=== PATIENT | male | born 1950 | race Caucasian/White ===

== ENCOUNTER 2020-02-07 13:53 | Inpatient (IN) | payer BC, OTHER ==
[~2020-02-07] VITALS: Ht 180.3 cm; Wt 90.6 kg
[2020-02-07] MEDS ORDERED: ONDANSETRON HCL 4 MG/2 ML VIAL IV ONE (15:15)
[2020-02-07] MEDS ORDERED: MORPHINE SULF INJ 2 MG/ML SYRINGE 1ML IV ONE (15:15)
[2020-02-07 15:18] LABS: Basophils # (auto) 0.1 10 ^3/uL (0-0.2); Basophils % (auto) 0.7 % (0.0-2.0); Eosinophils # (auto) 0.2 10 ^3/uL (0-0.8); Eosinophils % (auto) 2.2 % (0.0-7.0); Hematocrit 37.8 % (41.0-53.0); Hemoglobin 12.7 g/dL (13.5-17.5); Lymphocytes # (auto) 1.1 10 ^3/uL (0.4-5.4); Lymphocytes % (auto) 11.2 % (10.0-50.0); Mean Corpuscular Hemoglobin 32.1 pg (28.0-32.0); Mean Corpuscular Hgb Conc. 33.7 g/dL (32.0-36.0); Monocytes # (auto) 0.9 10 ^3/uL (0-1.3); Monocytes % (auto) 8.8 % (0.0-12.0); Neutrophils # (auto) 7.7 10 ^3/uL (1.6-8.6); Neutrophils % (auto) 77.1 % (37.0-80.0); Platelet Count (auto) 165 10^3/uL (140-450); Red Blood Cells 3.98 10^6/uL (4.5-5.90); Red Cell Distribution Width 13.3 % (11.8-14.3)
[2020-02-07] MEDS ORDERED: SODIUM CHLORIDE 0.9% 1,000 ML IV ONE (15:30)
[2020-02-07] MEDS ORDERED: TETANUS-DIPTH-ACEL PERTUSSIS 0.5ML SYR Tdap IM ONE (15:30)
[2020-02-07 15:37] LABS: INR 1.03 (0.9-1.15); Partial Thromboplastin Time 21.7 sec (23.64-32.05)
[2020-02-07] MEDS ORDERED: NITROGLYCERIN 0.4 MG SL TAB SL PRN (16:30)
[2020-02-07] MEDS ORDERED: MORPHINE SULF INJ 2 MG/ML SYRINGE 1ML IV PRN (16:30)
[2020-02-07] MEDS ORDERED: DEXTROSE (50%) 50ML SYRG IV PRN (16:30)
[2020-02-07] MEDS ORDERED: hydrALAZINE HCL 20 MG/ML VL IV PRN (16:30)
[2020-02-07] MEDS ORDERED: ONDANSETRON HCL 4 MG/2 ML VIAL IV PRN (16:30)
[2020-02-07] MEDS ORDERED: HYDROcodone-ACET 5/325MG TAB PO PRN (16:30)
[2020-02-07 16:40] LABS: Albumin 3.6 g/dL (3.4-5.0); Calcium 8.7 mg/dL (8.5-10.1)
[2020-02-07 16:43] LABS: Potassium 5.8 mmol/L (3.5-5.1)
[2020-02-07 16:44] LABS: Bilirubin, Total 0.4 mg/dL (0.2-1.0)
[2020-02-07 16:45] LABS: BUN/Creatinine Ratio 18.4
[2020-02-07] MEDS: InsuLIN REG 1unit/0.01ml Soln (100units/ml) SC SCH ×3 (17:00→23:23)
[2020-02-07] MEDS ORDERED: DEXTROSE (50%) 50ML SYRG IV ONE (17:00)
[2020-02-07] MEDS ORDERED: SODIUM BICARBONATE 50ML VIAL 50 ML in SOD CHL 0.45% 1,000 ML IV SCH (17:00)
[2020-02-07] MEDS ORDERED: SODIUM ZIRCONIUM CYCL 10 GM PAK PO ONE (17:00)
[2020-02-07] MEDS ORDERED: CALCIUM GLUC 4.65meq/50ml D5AE 50 ML IV ONE (17:00)
[2020-02-07] MEDS ORDERED: InsuLIN REG 1unit/0.01ml Soln (100units/ml) IV ONE (17:00)
[2020-02-07] MEDS ORDERED: ALBUTEROL SULF 2.5 MG/0.5ML(0.5%) NEB SOLN NEB ONE (17:00)
[2020-02-07 17:28] VITALS: BP 147/72
[2020-02-07] MEDS: HYDROmorphone HCL 2 MG/ML VL IV PRN ×2 (17:30→23:23)
[2020-02-07] MEDS: ACCU-CHEK COMFORT CURVE STRIP VI SCH ×2 (17:43→22:48)
[2020-02-07] MEDS: SODIUM ZIRCONIUM CYCL 10 GM PAK PO SCH ×2 (18:15→22:47)
[2020-02-07] MEDS: SODIUM CHLORIDE 0.9% 1,000 ML IV SCH (18:22)
[2020-02-07 22:00] VITALS: BP 117/63
[2020-02-08 00:11] LABS: Sodium Urine 37 mmol/L (40-220)
[2020-02-08 00:19] LABS: Urine Bacteria FEW /hpf (None Seen); Urine Blood Negative /uL (Negative); Urine Hyaline Cast FEW /lpf (0 - 2); Urine Specific Gravity 1.011 (1.001-1.035); Urine WBC 1 /hpf (0 - 3)
[2020-02-08 01:03] LABS: Creatinine, Urine 101 mg/dL (30.0-125.0)
[2020-02-08] MEDS: HYDROmorphone HCL 2 MG/ML VL IV PRN ×4 (03:26→20:31)
[2020-02-08 05:00] VITALS: BP 131/70
[2020-02-08 05:41] LABS: Albumin 3.3 g/dL (3.4-5.0); Calcium 8.4 mg/dL (8.5-10.1)
[2020-02-08 05:45] LABS: BUN/Creatinine Ratio 19.2; Bilirubin, Total 0.6 mg/dL (0.2-1.0); Phosphorus 4.1 mg/dL (2.5-4.90); Total Protein 6.6 g/dL (6.4-8.2)
[2020-02-08] MEDS: SODIUM ZIRCONIUM CYCL 10 GM PAK PO SCH ×2 (06:23→14:00)
[2020-02-08] MEDS: ACCU-CHEK COMFORT CURVE STRIP VI SCH ×3 (06:23→18:33)
[2020-02-08] MEDS: SODIUM CHLORIDE 0.9% 1,000 ML IV SCH (06:23)
[2020-02-08 09:00] VITALS: BP 129/65
[2020-02-08] MEDS ORDERED: PANTOPRAZOLE 40 MG TAB PO SCH (10:00)
[2020-02-08] MEDS ORDERED: amLODIPine BESYLATE 5 MG TAB PO SCH (10:00)
[2020-02-08] MEDS: InsuLIN REG 1unit/0.01ml Soln (100units/ml) SC SCH ×2 (11:39→18:33)
[2020-02-08 13:00] VITALS: BP 157/84
[2020-02-08 16:26] VITALS: BP 130/65
[2020-02-08 20:19] VITALS: BP 130/65
== END 2020-02-08 19:31 | disposition short-term general hospital (02) | DRG 562 ==
LOC: ER 13:53 → EDBD 13:53 → OVERFLOW 13:54 → TELE-CENTR 17:10
PROVIDERS: ADMIT Nurse Practitioner Acute Care; ATTEND Nurse Practitioner Acute Care
DX: S82.241A Displaced spiral fracture of shaft of right tibia, initial encounter for closed fracture (principal); N17.0 Acute kidney failure with tubular necrosis; S82.441A Displaced spiral fracture of shaft of right fibula, initial encounter for closed fracture; E11.9 Type 2 diabetes mellitus without complications; M54.9 Dorsalgia, unspecified; E78.5 Hyperlipidemia, unspecified; G89.29 Other chronic pain; E87.6 Hypokalemia; F12.90 Cannabis use, unspecified, uncomplicated; W01.0XXA Fall on same level from slipping, tripping and stumbling without subsequent striking against object, initial encounter; Z82.49 Family history of ischemic heart disease and other diseases of the circulatory system; Z88.0 Allergy status to penicillin; Z90.49 Acquired absence of other specified parts of digestive tract; Y93.89 Activity, other specified; Y92.89 Other specified places as the place of occurrence of the external cause; Y99.8 Other external cause status; F17.200 Nicotine dependence, unspecified, uncomplicated; Z79.84 Long term (current) use of oral hypoglycemic drugs
CPT/HCPCS: 36415; 71045; 73610; 80053; 81001; 82306; 82570; 82962; 83036; 83970; 84100; 84300; 85025; 85610; 85730; 86850; 86900; 86901; 90715; 93005; 93306; 94640; 96361; 96374; 96375; G0378; J0610; J1815; J2405